=== PATIENT | female | born 1960 | race Caucasian/White ===

== ENCOUNTER 2022-01-25 16:48 | Emergency (ER) | payer BC ==
[2022-01-25] MEDS ORDERED: Sodium Chloride 0.9% 10 ML Syringe FLUSH PRN (18:06)
[2022-01-25] MEDS: Sodium Chloride 0.9% 1,000 ML IV SCH (18:44)
[2022-01-25] MEDS: Potassium Chloride 20 MEQ Tab.ER PO STA (18:44)
== END 2022-01-25 19:50 | disposition home or self-care (01) ==
LOC: FB.ED 16:48
DX: S09.90XA Unspecified injury of head, initial encounter (principal); E86.0 Dehydration; E87.6 Hypokalemia; E87.1 Hypo-osmolality and hyponatremia; Z88.5 Allergy status to narcotic agent; Z79.899 Other long term (current) drug therapy; W18.09XA Striking against other object with subsequent fall, initial encounter
CPT/HCPCS: 36415; 70450; 80053; 84484; 85025; 93005; 96360; 99284; A9270; J7030

== ENCOUNTER 2024-12-16 15:14 | Emergency (ER) | payer MEDICAID ==
[2024-12-16] MEDS: Sodium Chloride 0.9% 1,000 ML IV ONE (16:46)
[2024-12-16] MEDS: Potassium Chloride 20 MEQ in Premix Bag 1 BAG IV ONE (16:46)
[2024-12-16 17:43] LABS: BILIRUBIN,URINE NEGATIVE (NEGATIVE); GLUCOSE,URINE NORMAL (NORMAL); KETONES,URINE NEGATIVE (NEGATIVE); LEUKOCYTE ESTERASE,URINE NEGATIVE (NEGATIVE); NITRITE,URINE NEGATIVE (NEGATIVE); OCCULT BLOOD,URINE NEGATIVE (NEGATIVE); PROTEIN,URINE NEGATIVE (NEGATIVE); UROBILINOGEN,URINE NORMAL (NEGATIVE)
[2024-12-16 17:46] LABS: APPEARANCE,URINE CLEAR (CLEAR); COLOR,URINE YELLOW (YELLOW)
[2024-12-16] MEDS: Sodium Chloride 0.9% 1,000 ML IV SCH (17:56)
[2024-12-16] MEDS: Potassium Chloride 20 MEQ Tab.ER PO ONE (18:09)
== END 2024-12-16 19:12 | disposition home or self-care (01) ==
LOC: FB.ED 15:14
DX: R53.1 Weakness (principal); E87.1 Hypo-osmolality and hyponatremia; E87.6 Hypokalemia; Z88.8 Allergy status to other drugs, medicaments and biological substances; Z79.899 Other long term (current) drug therapy
CPT/HCPCS: 70450; 80307; 81003; 84484; 96365; 96366; 99284; 99285-25; A9270-GY; J3480; J7030